=== PATIENT | female | born 1995 | race Two or more races ===

== ENCOUNTER 2016-10-19 09:54 | Emergency (ER) | payer BC ==
[~2016-10-19] VITALS: Ht 167.6 cm; Wt 65.8 kg
--- NOTE | 2016-10-19 10:04 | NUR ---
SELF PRESENT TO ED DT RIGHT LOWER ABDOMINAL PAIN, 7/10, SHARP, NON RADIATING STARTED LAST NIGHT. DENIES NAUSEA AND VOMITTING, NO DIARHEA, NO HEMATURIA NOR DYSURIA. PATIENT IS AFEBRILE. VSS
[2016-10-19] MEDS ORDERED: ONDANSETRON HCL/PF 4 MG/2 ML VIAL ONE (10:21)
[2016-10-19] MEDS ORDERED: IV NS 0.9% 1,000 ML ONE (10:21)
[2016-10-19] MEDS ORDERED: MORPHINE SULFATE INJ 4 MG/ML DISP.SYRIN ONE (10:21)
[2016-10-19 10:25] LABS: BASOPHILS # (AUTO) 0.4 /CMM (0.0-0.2); BASOPHILS % (AUTO) 2.5 % (0.0-2.0); EOSINOPHILS % (AUTO) 0.1 % (0.0-6.0); HEMATOCRIT 48 % (33-45); HEMOGLOBIN 15.3 g/dL (11.5-14.8); LYMPHOCYTES # (AUTO) 2.3 /CMM (0.8-4.8); LYMPHOCYTES % (AUTO) 13.2 % (20.0-44.0); MEAN CORPUSCULAR HEMOGLOBIN 28 PG (26.0-33.0); MEAN CORPUSCULAR HGB CONC 32 g/dl (31.0-36.0); MEAN CORPUSCULAR VOLUME 85 fL (82-100); MONOCYTES # (AUTO) 0.5 /CMM (0.1-1.30); NEUTROPHILS # (AUTO) 14.4 /CMM (1.8-8.9); NEUTROPHILS % (AUTO) 81.2 % (43.0-81.0); PLATELET COUNT (AUTO) 377 /CMM (150-450); RDW COEFFICIENT OF VARIATION 12.3 (11.5-15.0); RED BLOOD CELL COUNT(AUTO) 5.59 MIL/uL (4.0-5.2); WHITE BLOOD COUNT (AUTO) 17.6 K/uL (4.3-11.0)
[2016-10-19 10:27] LABS: APPEARANCE,URINE Clear (CLEAR); BILIRUBIN,URINE Negative (NEGATIVE); BLOOD, URINE Trace-intact Ery/uL (NEGATIVE); COLOR,URINE Yellow (YELLOW); KETONES,URINE Negative (NEGATIVE); LEUKOCYTE ESTERASE ,URINE Negative (NEGATIVE); NITRITE, URINE Negative (NEGATIVE); PH,URINE 6.5 (5.0-8.0); PROTEIN,URINE 30 mg/dl (NEGATIVE); UGLUCOSE Negative (NEGATIVE); UROBILINOGEN,URINE 0.2 EU/dL (0.2)
[2016-10-19 10:30] LABS: PREGNANCY TEST URINE QUAL NEGATIVE (NEGATIVE)
[2016-10-19] MEDS ORDERED: MORPHINE SULFATE INJ 2 MG/ML DISP.SYRIN IV ONE (10:30)
[2016-10-19] MEDS ORDERED: ONDANSETRON HCL/PF 4 MG/2 ML VIAL IVP ONE (10:30)
[2016-10-19] MEDS ORDERED: IV NS 0.9% 1,000 ML BAG IV ONE (10:30)
[2016-10-19 10:35] LABS: CALCIUM, SERUM 9.7 mg/dL (8.5-10.1); CREATININE 0.8 mg/dL (0.6-1.3); POTASSIUM 4.3 mmol/L (3.5-5.1)
[2016-10-19 10:37] LABS: RBC,URINE 0-2 /HPF (0-2)
[2016-10-19 10:38] LABS: BACTERIA,URINE Rare /HPF (None Seen); SQUAMOUS EPITHELIAL CELL,UR Few /HPF (None Seen)
[2016-10-19 10:41] LABS: ALBUMIN 4.4 g/dL (3.4-5.0); BILIRUBIN,DIRECT 0.1 mg/dL (0.0-0.2); BILIRUBIN,TOTAL 0.2 mg/dL (0.2-1.0); TOTAL PROTEIN, SERUM 9.3 g/dL (6.4-8.2)
[2016-10-19] MEDS ORDERED: DIAZEPAM 5 MG/ML 2 ML DISP.SYRIN IV ONE (11:30)
[2016-10-19] MEDS ORDERED: DIAZEPAM 5 MG/ML 2 ML DISP.SYRIN ONE (11:33)
[2016-10-19 13:14] VITALS: BP 142/80
--- NOTE | 2016-10-19 13:15 | NUR ---
Patient discharged to home in stable condition. Written and verbal after care instructions given. Patient verbalizes understanding of instruction.
== END 2016-10-19 13:16 | disposition home or self-care (01) ==
LOC: ER 09:57
DX: M54.5 Low back pain (principal); G89.29 Other chronic pain; R10.31 Right lower quadrant pain
CPT/HCPCS: 36415; 72128; 74176; 76856; 80048; 80076; 81001; 83690; 84703; 85025; 87086; 96361; 96374; 96375; 99285; A4606; J2270; J2405; J3360; J7030; Z7610; 81000-TC

== ENCOUNTER 2019-09-15 21:02 | Emergency (ER) | payer BC, OTHER ==
[~2019-09-15] VITALS: Ht 167.6 cm; Wt 72.6 kg
--- NOTE | 2019-09-15 21:09 | NUR ---
[id number] from home for back pain 01/24 x2-3hr hx disc problem. no trauma. to er bed 4 awaiting eval
[2019-09-15] MEDS ORDERED: oxyCODONE/APAP (5/325 MG) 1 UDTAB TABLET ONE (21:23)
[2019-09-15] MEDS ORDERED: IBUPROFEN 600 MG TABLET PO ONE ×2 (21:23→21:30)
[2019-09-15] MEDS ORDERED: oxyCODONE/APAP (5/325 MG) 1 UDTAB TABLET PO ONE (21:30)
[2019-09-15] MEDS ORDERED: HYDROMORPHONE 1 MG/1 ML DISP.SYRIN IM ONE (22:00)
[2019-09-15] MEDS ORDERED: HYDROMORPHONE 1 MG/1 ML DISP.SYRIN ONE (22:11)
--- NOTE | 2019-09-15 22:49 | NUR ---
Patient discharged to home in stable condition. Written and verbal after care instructions given. Patient verbalizes understanding of instruction.
--- NOTE | 2019-09-15 23:44 | NUR ---
Patient discharged to home in stable condition. Written and verbal after care instructions given. Patient verbalizes understanding of instruction.
[2019-09-15 23:45] VITALS: BP 124/78
== END 2019-09-15 23:45 | disposition home or self-care (01) ==
LOC: ER 21:03
DX: S39.012A Strain of muscle, fascia and tendon of lower back, initial encounter (principal); X58.XXXA Exposure to other specified factors, initial encounter; Y93.89 Activity, other specified; Y92.89 Other specified places as the place of occurrence of the external cause; Y99.8 Other external cause status
CPT/HCPCS: 96372; 99283; J1170

== ENCOUNTER 2020-01-03 12:10 | Emergency (ER) | payer OTHER ==
[~2020-01-03] VITALS: Ht 167.6 cm; Wt 68.0 kg
--- NOTE | 2020-01-03 12:20 | NUR ---
ER BED 4 PT CAME TO ER WITH COMPLAINTS OF L ANKLE PAIN, SHE STATES THAT SHE INJRUED HERSELF PLAYING TENNIES A COUPLE DAYS AGO, BUT THAT HER ANKLE IS STILL PAINFUL AND WAS SWOLLEN YESTERDAY. MILD SWELLING ON L LAT ANKLE NOTED. VS CHECKED. AWAITING TO BE SEEN BY .
--- NOTE | 2020-01-03 12:30 | NUR ---
Patient came in to the er c/o left ankle pain, on room air, breathing evenly and unlabored. connected to the monitor and pulse ox. kept comfortable, will continue to monitor accordingly.
[2020-01-03 14:08] VITALS: BP 118/72
--- NOTE | 2020-01-03 14:08 | NUR ---
Patient discharged to home in stable condition. Written and verbal after care instructions given. Patient verbalizes understanding of instruction.
== END 2020-01-03 14:08 | disposition home or self-care (01) ==
LOC: ER 12:13
DX: S93.492A Sprain of other ligament of left ankle, initial encounter (principal); G89.29 Other chronic pain; M54.9 Dorsalgia, unspecified; X50.1XXA Overexertion from prolonged static or awkward postures, initial encounter; Y93.73 Activity, racquet and hand sports; Y92.312 Tennis court as the place of occurrence of the external cause; Y99.8 Other external cause status
CPT/HCPCS: 73610-TC